=== PATIENT | female | born 1945 | race Caucasian/White ===

== ENCOUNTER 2016-11-24 16:30 | Inpatient (IN) | payer MEDICARE, MEDICAID ==
[~2016-11-24] VITALS: Ht 160 cm; Wt 40.0 kg
[~2016-11-24 16:30] MED LIST: FLONASE NASAL50 MCG; LORTAB5 PO; OXYCODONE HCL15 MG PO; PRILOSEC40 MG PO; PROAIR HFA IN; PROTONIX40 M2 PO; SINGULAIR10 MG PO; SYNTHROID50 MCG PO
[2016-11-24 17:13] LABS: HEMATOCRIT 33.7 % (37.0-47.0); HEMOGLOBIN 12.1 g/dl (12.0-16.0); IMMATURE GRANULOCYTES 0.7 % (0.0-1.0); MEAN CELL VOLUME 87.8 fL CALC (80.0-100.0); MEAN CORPUSCULAR HGB 31.5 pG CALC (26.0-32.0); MEAN CORPUSCULAR HGB CONC 35.9 g/L CALC (32.0-36.0); NEUT# 7.02 thou/uL (2.00-7.15); RED BLOOD COUNT 3.84 mill/uL (4.20-5.60); RED CELL DISTRI WIDTH 12.9 % (11.5-15.5)
[2016-11-24 17:25] LABS: ALBUMIN 4.6 g/dL (3.2-5.0); ALKALINE PHOSPHATASE 102 u/l (38-126); BILIRUBIN, TOTAL 0.7 mg/dL (0.0-1.4); BUN 10 mg/dL (8-23); BUN/CREATININE RATIO 23 (12-20 (CALC)); CALCIUM 9.8 mg/dL (8.4-10.2); CARBON DIOXIDE 32 mmol/l (22-30); CHLORIDE 74 mmol/l (95-108); CREATININE 0.4 mg/dL (0.5-1.0); GFR > 60 ML/MIN (>=60 (CALC)); GFR FOR AFR.AMER. > 60 ML/MIN (>=60 (CALC)); GLUCOSE 171 mg/dL (82-115); POTASSIUM 3.5 mmol/l (3.5-5.1); SGOT/AST 33 u/l (9-36); SGPT/ALT 35 u/l (11-66); TOTAL PROTEIN 8.4 g/dL (6.3-8.2)
[2016-11-24 17:28] LABS: ANION GAP 15 (6-22 (CALC))
[2016-11-24 17:30] LABS: SODIUM 117 mmol/l (137-146)
[2016-11-24 17:37] LABS: MYOGLOBIN 40 ng/mL (0 - 62)
[2016-11-24 19:34] LABS: TSH, 3RD GENERATION 1.59 uIU/mL (0.47 - 4.68)
[2016-11-24 20:43] VITALS: BP 111/60
[2016-11-24 21:15] VITALS: BP 91/52
[2016-11-24 21:30] VITALS: BP 96/50
[2016-11-24 21:45] VITALS: BP 93/62
[2016-11-24 22:00] VITALS: BP 68/47
[2016-11-24 23:00] VITALS: BP 83/52
[2016-11-25] VITALS (9 sets, daily range): BP systolic 62–99; BP diastolic 36–61
== END 2016-11-25 15:05 | disposition hospice, inpatient (51) | DRG 640 ==
LOC: ED 16:30 → ED-I 18:31 → ED 18:49 → ICU 18:50
PROVIDERS: Emergency Medicine; ADMIT Internal Medicine; ATTEND Internal Medicine
PROC: 05HM33Z Insertion of Infusion Device into Right Internal Jugular Vein, Percutaneous Approach (ICD-10-PCS; principal; 2016-11-24)
DX: E87.1 Hypo-osmolality and hyponatremia (principal); I21.09 ST elevation (STEMI) myocardial infarction involving other coronary artery of anterior wall; I47.2 Ventricular tachycardia; Z68.1 Body mass index [BMI] 19.9 or less, adult; J44.9 Chronic obstructive pulmonary disease, unspecified; C14.0 Malignant neoplasm of pharynx, unspecified; E03.9 Hypothyroidism, unspecified; K21.9 Gastro-esophageal reflux disease without esophagitis; R63.6 Underweight; Z93.1 Gastrostomy status; Z92.21 Personal history of antineoplastic chemotherapy; Z51.5 Encounter for palliative care; Z87.891 Personal history of nicotine dependence; Z66 Do not resuscitate; Z92.3 Personal history of irradiation
CPT/HCPCS: J0282; J2060